=== PATIENT | female | born 1945 | race Caucasian/White ===

== ENCOUNTER → 2018-06-16 10:23 | Outpatient (CLI) | payer MEDICARE, OTHER ==
[2015-05-22 06:04] VITALS: BMI 26.7
[~2018-06-16 10:23] MED LIST: HALCION0.25 MG PO; LISINOPRIL5 MG PO; SYNTHROID100 MCG PO
== END | disposition home or self-care (01) ==
LOC: D.RAD 10:00
DX: R13.10 Dysphagia, unspecified (principal)